=== PATIENT | male | born 1990 | race American Indian/Alaskan Native ===

== ENCOUNTER 2017-08-29 22:56 | Emergency (ER) | payer OTHER ==
[2017-08-29 23:25] VITALS: BP 155/100
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
[2017-08-30] MEDS ORDERED: NORCO 5/325 PO ONE (00:23)
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
[2017-08-30] MEDS ORDERED: TORADOL IM ONE (03:28)
[2017-08-30] MEDS ORDERED: MOTRIN PO ONE (03:39)
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
== END 2017-08-30 04:35 | disposition home or self-care (01) ==
LOC: ED 22:56
DX: S16.1XXA Strain of muscle, fascia and tendon at neck level, initial encounter (principal); M79.1 Myalgia; M79.645 Pain in left finger(s); M25.561 Pain in right knee; V49.59XA Passenger injured in collision with other motor vehicles in traffic accident, initial encounter; Y93.89 Activity, other specified; Y92.89 Other specified places as the place of occurrence of the external cause; Y99.8 Other external cause status
CPT/HCPCS: 70450; 71101; 72070; 72125; 73130; 73562; 93005; 93010; 96372; 99284; J1885